=== PATIENT | male | born 1990 | race Caucasian/White ===

== ENCOUNTER 2018-06-27 20:35 | Observation (INO) ==
--- NOTE | 2018-06-27 20:51 | Emergency Department Note ---
Disposition Clinical Impression: Acute appendicitis Qualifiers: Acute appendicitis type: unspecified acute appendicitis type Qualified Code(s) : K35.80 - Unspecified acute appendicitis Disposition: Admitted As Inpatient Condition: Fair Time of Disposition: 20:51 Abdominal Pain HPI - General Chief Complaint: ED Abdominal Pain Stated Complaint: Appendicitis Time Seen by Provider: 06/27/18 20:39 Source: patient, family Mode of arrival: ambulatory Limitations: no limitations Nursing Notes Reviewed: Yes Vital Signs Reviewed: Yes - History of Present Illness Pt Subjective Complaint: abdominal pain Onset (ago): day(s) Consistency: constant Location: RLQ, epigastric Pain Scale: 0 Quality: cramping, aching Radiation: RLQ Migration to: RLQ Improves with: nothing Worsens with: movement Associated symptoms: Reports: nausea Treatments prior to arrival: other (Had outpatient labs and CT scan abdomen and pelvis) - Related Data Allergies Allergy/AdvReac Type Severity Reaction Status Date / Time No Known Allergies Allergy Verified 05/01/18 19:42 All systems ED: reviewed and negative except as stated. Constitutional: Reports: as per HPI Eyes: Reports: as per HPI ENT ED: Reports: as per HPI Cardiovascular: Reports: as per HPI Respiratory: Reports: as per HPI Gastrointestinal: Reports: abdominal pain, nausea Genitourinary: Reports: as per HPI Musculoskeletal: Reports: as per HPI Integumentary: Reports: as per HPI Neurological: Reports: as per HPI Psychiatric: Reports: as per HPI Endocrine: Reports: as per HPI Hematological/Lymphatic: Reports: as per HPI Allergic/Immunologic: Reports: as per HPI Abdominal Pain PMH - Past Medical History Medical history: Reports: no medical history Male Surgical History: Reports: other Psychiatric history: Reports: no psych history - Social History Smoking status: Never smoker Alcohol use: Reports: none Drug use: Reports: none Physical Exam - General Limitations: no limitations General appearance: alert - Head Head exam: atraumatic - Eye Eye exam: Present: normal appearance - ENT ENT exam: normal exam - Neck Neck exam: Present: normal inspection, full ROM - Chest Chest inspection: Present: normal inspection - Respiratory Respiratory exam: Present: normal lung sounds bilaterally - Cardiovascular Cardiovascular exam: Present: regular rate, normal rhythm, normal heart sounds - Abdominal Exam Abdominal exam: Present: soft, tenderness (Mildly tender with deep palpation in the right lower quadrant. No guarding, rebound, rigidity or obturator sign) - Rectal Exam Rectal exam: Present: deferred - Extremities Exam Extremities exam: Present: normal inspection - Neurological Exam Neurological exam: Present: alert, oriented X3, CN II-XII intact - Psychiatric Psychiatric exam: Present: normal affect, normal mood - Skin Skin exam: Present: warm, dry, intact Course Course Narrative: Patient presents after having an outpatient CT scan indicating acute appendicitis. I did review the transcribed report of this study. I discussed these findings with the on-call surgeon. I reviewed his outpatient labs dated today. This includes a CBC and metabolic profile. Patient advised to be nothing by mouth and will be admitted for surgical evaluation Vital Signs Temperature 98.3 F 06/27/18 20:40 Pulse Rate 96 06/27/18 20:40 Respiratory Rate 16 06/27/18 20:40 Blood Pressure 163/81 06/27/18 20:40 O2 Sat by Pulse Oximetry 99 06/27/18 20:40 Temperature 98.3 F 06/27/18 20:40 Pulse Rate 96 06/27/18 20:40 Respiratory Rate 16 06/27/18 20:40 Blood Pressure 163/81 06/27/18 20:40 O2 Sat by Pulse Oximetry 99 06/27/18 20:40 Oxygen Delivery Oxygen Delivery Room Air Abdominal Pain - Medical Records Medical records reviewed: Yes I reviewed the patient's medical records. - Lab Data Lab results reviewed: Yes I reviewed the patient's lab results. - Radiology Data Radiology results reviewed: Yes I reviewed the patient's radiology results.
[2018-06-27] MEDS ORDERED: Piperacillin/Tazobactam 3.375 GM in 0.9 % Sodium Chloride Mini Bag 100 ML IVPB ONE (21:00)
[2018-06-27] MEDS ORDERED: OXYCODONE Oral CONC 10 MG/0.5 ML ORAL.SYG SL PRN (22:33)
[2018-06-27] MEDS ORDERED: Ondansetron ODT 4 MG TAB.RAPDIS SL PRN (22:33)
--- NOTE | 2018-06-27 22:45 | General Surg History&Physical ---
Date of Encounter: 06/27/18 Time of Encounter: 22:42 Assessment and Plan (1) Acute appendicitis Current Visit: Yes Status: Acute 27M with acute appendicits; NPO IVF abx activity as tolerated okay for OR in AM The assessment and plan as outlined above was discussed with the patient and/or family members who expressed understanding and agreement. All questions were answered. Qualifiers: Acute appendicitis type: with localized peritonitis Qualified Code(s): K35.3 - Acute appendicitis with localized peritonitis History of Present Illness Chief complaint: abdominal pain HPI: Mr. Houston is a 27 year old male otherwise healthy who presents with 5 days of worsening abdominal pain. No associated vomiting, but vague reports of nausea with abdominal cramps. No reports of fevers, chills nor other systemic symptoms. The pain started periumbilically and migrated to the RLQ. He was evaluated by his PCP at the urging of his significant other who ordered a CT scan which demonstrated dilated appendix and multiple appendicoliths. THe CT scan was reviewed and interpreted by me. Past Med Surg Social Fam HX - Past Medical History Medical history: no medical history Psychiatric history: no psych history - Past Surgical History Additional surgical history: left shoulder surgery. left index finger surgery x5. Chest tube - Social History Smoking Status: Never smoker Alcohol use: occasionally Drug use: none - Additional Family History Additional family history: non contributory Medications and Allergies Multivitamin [One Daily Multivitamin] 1 each PO DAILY 06/27/18 [History] 3 Allergy/AdvReac Type Severity Reaction Status Date / Time No Known Allergies Allergy Verified 06/27/18 22:31 Review of Systems All systems PM: 12 point ROS negative besides HPI findings General Surgery Exam Initial Vital Signs Temp Pulse Resp BP Pulse Ox 98.3 F 96 16 163/81 99 06/27/18 20:40 06/27/18 20:40 06/27/18 20:40 06/27/18 20:40 06/27/18 20:40 - General physical appearance well developed, well nourished, no distress - Eyes normal ocular movement - ENT normocephalic - Neck no lymphadectomy - Respiratory normal expansion, normal respiratory effort - Cardiovascular Cardiovascular exam: Present: RRR - Abdomen Abdomen general surgery: Present: soft, tender Abdominal Tenderness: Present: RLQ (non peritoneal) - Integumentary Integumentary general surgery: Present: warm and dry - Neurologic Present: CN 2-12 grossly intact - Musculoskeletal Present: normal gait, normal posture - Psychiatric Psychiatric general surgery: Present: A&Ox3 Results - Labs All other labs normal. - Imaging CT scan - abdomen: report reviewed, image reviewed CT scan - pelvis: report reviewed, image reviewed
[2018-06-28] MEDS ORDERED: Piperacillin/Tazobactam 3.375 GM in 0.9 % Sodium Chloride Mini Bag 100 ML IVPB SCH (08:00)
[2018-06-28] MEDS ORDERED: Dexamethasone 4 MG/ML VIAL ONE ×2 (08:28→11:36)
[2018-06-28] MEDS ORDERED: *HR* Midazolam HCl 2 MG/2 ML VIAL ONE ×2 (08:28→09:17)
[2018-06-28] MEDS ORDERED: *HR* Propofol 200 MG/20 ML VIAL IVP ONE (08:28)
[2018-06-28] MEDS ORDERED: *HR* Rocuronium Bromide 50 MG/5 ML VIAL ONE (08:28)
[2018-06-28] MEDS ORDERED: Ondansetron 4 MG/2 ML VIAL ONE (08:28)
[2018-06-28] MEDS ORDERED: Lidocaine -MPF 4% 5 ML AMPUL ONE (08:28)
[2018-06-28] MEDS ORDERED: Lidocaine -MPF 2% 2 ML VIAL ONE (08:28)
[2018-06-28] MEDS ORDERED: *HR* FentaNYL (PF) 100 MCG/2 ML VIAL ONE (08:28)
[2018-06-28] MEDS ORDERED: Famotidine 20 MG/2 ML VIAL ONE (09:08)
[2018-06-28] MEDS ORDERED: Acetaminophen IV 1,000 MG/100 ML INFUS..BTL ONE (09:08)
--- NOTE | 2018-06-28 09:14 | Anesthesia Evaluation PreOp ---
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: Denies Any Significant HX Other Medical History: Denies Any Significant HX Anesthesia History: No Prior Anesthetic Complications Alcohol Use: occasionally Drug use: none Medications and Allergies Multivitamin [One Daily Multivitamin] 1 each PO DAILY 06/27/18 [History] 3 Allergy/AdvReac Type Severity Reaction Status Date / Time No Known Allergies Allergy Verified 06/27/18 22:31 - Meds/Allergy Pre-op Review Medications Reviewed: Yes Allergies Reviewed: Yes Beta Blockers on Current Med List: No Anesthesia Results - Labs O2 Sat Height 2.01 m Height 2.01 m Height 2.01 m Weight 121.109 kg Weight 121.109 kg Weight 121.109 kg Weight 121.109 kg O2 Sat by Pulse Oximetry 98 O2 Sat by Pulse Oximetry 98 O2 Sat by Pulse Oximetry 97 O2 Sat by Pulse Oximetry 99 O2 Sat by Pulse Oximetry 99 Vital Signs Temp Pulse Resp BP Pulse Ox 98.3 F 96 16 163/81 99 06/27/18 20:40 06/27/18 20:40 06/27/18 20:40 06/27/18 20:40 06/27/18 20:40 Laboratory Tests 06/27/18 06/27/18 16:52 16:52 Hgb 14.5 Hct 43.7 Plt Count 282 Sodium 139 Potassium 3.8 BUN 12 Creatinine 0.95 Anesthesia Exam Height: 6'7 Weight: 257 lbs NPO (# of Hours): MN Pain Scale: 0 - HEENT Pupil (Motor): Pupils equal, EOMI Mallampati: II Teeth: Normal Oral Opening: Greater than 3 - ANIMAL HUMANE AGENT SUPERVISOR LOC: Oriented ANIMAL HUMANE AGENT SUPERVISOR Motor: Normal RUE, Normal LUE, Normal RLE, Normal LLE, Normal Face ANIMAL HUMANE AGENT SUPERVISOR Sensory: Normal: RUE, LUE, RLE, LLE, Face - Cardiac Rhythm: Regular Murmur: None JVD: No Carotid Bruit: No - Pulmonary Breath Sounds: bilateral Clear Respiratory Effort: Symmetrical Anesthesia Assess/Plan ASA Score: 1 Modified Clara Scale for Level of Consciousness: Cooperative, oriented, and tranquil Anesthetic Plan: General Monitoring Plan: Standard Monitors Recovery Plan: PACU (Discussed GA, agrees to proceed)
[2018-06-28] MEDS ORDERED: Ringers Solution, Lactated 1,000 ML IVC SCH (09:15)
[2018-06-28] MEDS ORDERED: KETAMINE HCL 50 MG/ML SYRINGE IV ONE (09:37)
[2018-06-28] MEDS ORDERED: D5% in 0.45% NACL w KCl 20 MEQ/1,000 ML MLS IVC SCH ×2 (10:00→13:12)
--- NOTE | 2018-06-28 10:03 | General Surgery Progress Note ---
Date of Encounter: 06/28/18 Time of Encounter: 10:02 - Assessment and Plan (1) Acute appendicitis Current Visit: Yes Status: Acute 27M with acute appendicitis; OR today Qualifiers: Acute appendicitis type: with localized peritonitis Qualified Code(s): K35.3 - Acute appendicitis with localized peritonitis Subjective Patient reports: no new complaints Objective Vital Signs - Last 8 Hours Temp Pulse Resp BP Pulse Ox 06/28/18 06:42 98.3 F 56 13 110/67 98 06/28/18 03:43 97.8 F 59 16 106/61 98 Intake and Output 06/27/18 06/28/18 06/28/18 23:59 07:59 15:59 Intake Total 0 / 0 100 / 100 Output Total 0 / 0 0 / 0 Balance 0 / 0 100 / 100 Intake: IV Fluids 100 / 100 Zosyn 3.375 GM In 0.9 % Sodium 100 / 100 Chloride (Mini-Bag +) 100 ML @ 25 mls/hr IVPB ONCE ONE Rx#: [id number] Oral 0 / 0 0 / 0 Output: Urine 0 / 0 0 / 0 Other: Meal NPO for breakfast Stool Characteristics Normal for Patient Weight 121.109 kg 121.109 kg Blood Glucose* 81 Patient Weight 06/28/18 23:59 Weight 121.109 kg - General physical appearance no distress - Respiratory normal expansion, normal respiratory effort - Cardiovascular Cardiovascular exam: Present: RRR - Abdomen Abdomen: Present: soft, tender Abdominal Tenderness: RLQ - Integumentary no rash - Neurologic CN 2-12 grossly intact - Psychiatric oriented to time, oriented to person, oriented to place Consult Discharge Plan - Plan Referrals: Katja Cedeño, [employer] [facility] [Primary Care Provider] -
[2018-06-28] MEDS ORDERED: *HR* Promethazine 25 MG/ML VIAL IVP PRN (12:02)
[2018-06-28] MEDS ORDERED: *HR* Meperidine 25 MG/ML SYRINGE IVP PRN (12:02)
[2018-06-28] MEDS ORDERED: *HR* HYDROmorphone (PF) 1 MG/ML SYRINGE IVP PRN (12:02)
[2018-06-28] MEDS ORDERED: *HR* OxyCODONE Immed Rel 5 MG TABLET PO PRN (12:02)
[2018-06-28] MEDS ORDERED: Neostigmine Methylsulfate 3 MG/3 ML SYRINGE ONE (12:12)
[2018-06-28] MEDS ORDERED: Ketorolac 30 MG/ML VIAL ONE (12:14)
[2018-06-28] MEDS ORDERED: *HR* Morphine 10 MG/ML VIAL ONE (12:21)
--- NOTE | 2018-06-28 12:45 | Operative Note ---
Date of procedure: 06/28/18 Pre-op diagnosis: acute appendicitis Post-op diagnosis: same Procedure: laparoscopic appendectomy Implants: none Complications: none Anesthesia: GETA Local Anesthetics: 0.5% Sensorcaine HCL SubQ (cc) Surgeon: Brandan Christian Was there an captain's assistant present: No Plastics Fabrication Supervisor Other: Ruiz Ferris Estimated blood loss (cc): 5 Specimen: appendix Condition: stable Disposition: PACU Procedure in Detail: The patient was brought into the operating room suite. The patient was placed in the supine position. Mechanical DVT prophylaxis was initiated. The patient underwent smooth induction of general endotracheal anesthesia. The patient was prepped and draped in the usual fashion. Preoperative antibiotics were given. A timeout was held identifying the correct patient, pathology, and procedure. Everyone was in agreement and we began a procedure. Incision to Mesenteric Window I started bycreating a supraumbilical incision and via open Oneil technique entered into the abdomen. I then used a Vicryl suture on a UR 6 needle in a [id number] fashion to reapproximate but not close the fascia. I then inserted the 10 trocar followed by the camera to visualize the intraabdominal cavity. I then created a 5 mm incision suprapubically and inserted the 5 mm trocar under direct visualization. Roughly 1 handbreadth lateral to the umbilical incision I created another 5 mm incision and inserted another 5 mm trocar under direct visualization. I then inserted the nontraumatic instruments into the 5 mm ports and began the procedure. I was able to identify the tinea coli coalescing at the base of the cecum to identify the appendix. Using the nontraumatic grasper I was able to grasp the appendix and then using the [place] dissector was able to create a mesenteric window. Mesenteric Window to Appendectomy I then inserted the nontraumatic grasper into the same mesenteric window to widen it. I then grasped the appendix and switched from the 10 mm camera to the 5 mm camera so that we can insert the stapler through the umbilical port. The teeth of the stapler through the mesenteric window. It should be stated that the stapler was a 45 mm bowel load stapler. It was positioned at the base of the appendix and I was able to confirm under direct visualization that the teeth contained no other structures such as the cecum. I then fired the stapler and resected the appendix from the base of the cecum. I then loaded up a vascular load stapler and then in the similar fashion did fire across the mesentery. Retrieval to Closure I then inserted the Endo Catch bag to retrieve the specimen which was intact upon retrieval. I then switched back to the 10 mm camera and inserted the nontraumatic grasper as well as a suction-audio visual engineer into the 5 mm ports. And under direct visualization I was able to appreciate the staple line of the mesoappendix as well as the staple line of the base of the cecum. There was no obvious leaking nor bleeding. The pelvis did not have any collection of fluid. I then concluded the procedure, turned off the insufflation, removed the trochars under direct visualization, and then closed the umbilical fascia using the Vicryl suture that was placed at the beginning. I then closed all incisions with interrupted 4-0 Monocryl. And then sealed with Dermabon. It should be stated that I did use 0.5% Marcaine as a local anesthetic. The patient tolerated the procedure well and did go back to PACU in stable condition.
[2018-06-28] MEDS ORDERED: *HR* OxyCODONE Immed Rel 5 MG TABLET ONE (12:56)
--- NOTE | 2018-06-28 13:10 | Anesthesia Evaluation Post Op ---
Date of Encounter: 06/28/18 Time of Encounter: 13:10 - Vital Signs Vital Signs: Vital Signs/O2 Sat/Glucose, Most Current Temp Pulse Resp BP Pulse Ox 06/28/18 13:02 97.8 F 52 16 121/82 97 06/28/18 12:52 61 16 119/78 96 06/28/18 12:42 46 16 122/81 96 06/28/18 12:32 97.2 F L 61 20 122/86 100 - Lungs Lungs: Clear Ascult./Percussion - Airway Airway: Non-obstructed - Cardiovascular Regular Rate - Mental Status Mental Status: Alert & Oriented, Answers Appropriately - Pain Pain Scale: 1 - Nausea Vomiting Nausea Vomiting: Unable to assess - Hydration Hydration: Ice chips - Discharge PostOp Status: Transfer Patient to floor
[2018-06-28] MEDS ORDERED: OXYCODONE Oral CONC 10 MG/0.5 ML ORAL.SYG SL PRN (13:12)
[2018-06-28] MEDS ORDERED: Ondansetron ODT 4 MG TAB.RAPDIS SL PRN (13:12)
[2018-06-29 06:28] VITALS: BP 118/71
--- NOTE | 2018-06-29 09:55 | Discharge Summary ---
<Rm Francis R - Last Filed: 06/29/18 09:53> Orders not resulted at time of discharge: Pending orders 06/28/18 12:27 Surgical Pathology [PTH] Routine Date of Encounter: 06/29/18 Time of Encounter: 09:56 - Discharge Diagnosis (1) Acute appendicitis Priority: Primary Status: Acute Qualifiers: Acute appendicitis type: with localized peritonitis Qualified Code(s): K35.3 - Acute appendicitis with localized peritonitis General Surgery Exam Initial Vital Signs Temp Pulse Resp BP Pulse Ox 98.3 F 96 16 163/81 99 06/27/18 20:40 06/27/18 20:40 06/27/18 20:40 06/27/18 20:40 06/27/18 20:40 - General physical appearance well developed, well nourished, no distress, no pain - Eyes PERRL, normal ocular movement - ENT normal mucosa, atraumatic, normocephalic - Neck trachea midline - Respiratory normal expansion, normal respiratory effort, clear to auscultation - Cardiovascular Cardiovascular exam: Present: RRR - Abdomen Abdomen general surgery: Present: bowel sounds present, soft, tender (mild post surgical tenderness). Absent: distended, guarding - Incision Incision: Present: clean and dry, intact - Integumentary Integumentary general surgery: Present: warm and dry - Neurologic Present: CN 2-12 grossly intact - Musculoskeletal Present: normal gait, normal posture - Psychiatric Psychiatric general surgery: Present: A&Ox3, speech is normal, memory intact - Hospital Course Hospital course: Mr. Houston is a 27 year old male with no significant medical history. Presented on 06/27/2018 for evaluation of right lower quadrant abdominal pain. Patient had previously visited his PCP with chief complaint of 5 days of worsening abdominal pain. Some associated nausea without vomiting. Denied fevers, chills, change in bowel habits. Patient reported pain started periumbilically progressively localizing to the RLQ. PCP did obtain outpatient CT with demonstration of a dilated appendix. Patient was subsequently reported to the ED for further evaluation and management. Patient was admitted, started on IV antibiotics and nothing by mouth in preparation for surgery. Patient was taken to the OR for laparoscopic appendectomy on 06/28/[address] Christian. Patient tolerated the procedure well without competitions. Postoperatively pain has been under excellent control, requiring minimal to no medications. Tolerating regular diet without nausea, vomiting, or pain. Patient is ambulating without difficulty. Vital signs are stable and within normal limits , afebrile. Hospital stay has been uncomplicated and patient is stable and cleared for discharge this afternoon. Patient will follow up with outpatient surgery in approximately 2 weeks. - Time Spent with Patient Total time spent providing and/or coordinating discharge services: - Discharge Medications Prescriptions: OxyCODONE/APAP 5/325 [Percocet 5/325 MG] 1 each PO Q6HR PRN 4 Days #14 tablet PRN Reason: Pain Home Medications: Multivitamin [One Daily Multivitamin] 1 each PO DAILY 06/27/18 [History] OxyCODONE/APAP 5/325 [Percocet 5/325 MG] 1 each PO Q6HR PRN 4 Days #14 tablet [Rx] Allergies/Adverse Reactions: 3 Allergy/AdvReac Type Severity Reaction Status Date / Time No Known Allergies Allergy Verified 06/27/18 22:31 Date of admission: 06/27/18 21:31 Primary care physician: Katja Cedeño CNP Discharging clinician: Rm Francis Anticipated date of discharge: 06/29/18 - Patient Status Disposition: Home, Self-Care Condition: Good Overall status at discharge: patient is progressing back to baseline - Discharge Instructions Instructions: Appendicitis (DC) Follow Up With: Katja Cedeño CNP [Primary Care Provider] - Brandan Christian MD [Non-Partnered Physician] - Forms: Work/School Release Additional Instructions: General Surgical Discharge Instructions 1. No pushing, pulling, or lifting greater than 15 lbs for 2-4 weeks (depending upon procedure). 2. You may shower beginning today, but no tub baths, soaking, or swimming for 2 weeks. 3. You may resume driving when you are off narcotics and are safe to react in a car. 4. Take ibuprofen every 8 hours for discomfort. If this does not relieve discomfort, you may take the as needed Percocet. Take narcotics as directed. Do not take more narcotics then directed and do not share your narcotics with any other person. Do not drink alcohol while on narcotics. 5. Take stool softeners (Colace) or a water based laxative (Miralax) while taking narcotics. You may hold for loose stools. 6. Report any fevers greater than 100.5F, increase abdominal discomfort, drainage that looks like pus, increased redness or pain at the surgical site, or any vomiting. 7. Report any pain in the calves, shortness of breath, or rapid heartbeat. 8. Follow-up in the office as directed. 9. If you were prescribed antibiotics, do not stop them without talking to your provider. Follow up with Dr. Christian in approximately 2 weeks - Diet and Activity Activity: increase activity as tolerated Diet: advance to your usual diet <Brandan Christian - Last Filed: 06/29/18 10:43> Orders not resulted at time of discharge: Pending orders 06/28/18 12:27 Surgical Pathology [PTH] Routine Date of Encounter: 06/29/18 - Discharge Diagnosis (1) Acute appendicitis Status: Acute Qualifiers: Acute appendicitis type: with localized peritonitis Qualified Code(s): K35.3 - Acute appendicitis with localized peritonitis General Surgery Exam Initial Vital Signs Temp Pulse Resp BP Pulse Ox 98.3 F 96 16 163/81 99 06/27/18 20:40 06/27/18 20:40 06/27/18 20:40 06/27/18 20:40 06/27/18 20:40 - Hospital Course Hospital course: Mr. Houston is a 27 year old male - Time Spent with Patient Total time spent providing and/or coordinating discharge services: Date of admission: 06/27/18 21:31 Primary care physician: Katja Cedeño CNP - Attending Attestation patient seen and examined. i have reviewed all labs, imaging, and notes. i agree with the above assessment and plan and wish to add the following... okay for discharge follow up in 2 weeks
== END 2018-06-29 10:43 | disposition home or self-care (01) ==
LOC: EMEROOARM 20:35 → 3ANU 20:35
PROVIDERS: ADMIT Surgery; ATTEND Surgery